=== PATIENT | male | born 1940 | race Caucasian/White ===

== ENCOUNTER 2016-08-10 20:32 | Emergency (ER) | payer MEDICARE, BC ==
[~2016-08-10] VITALS: Ht 175.3 cm; Wt 77.0 kg
[2016-08-10 20:34] VITALS: BP 181/80; PULSE 72; RESP 18; TEMP 98.1; O2SAT 100
[2016-08-11 00:06] VITALS: BP 188/91; PULSE 72; RESP 18; O2SAT 100
[2016-08-11] MEDS ORDERED: LOVA40TA PO (00:11)
[2016-08-11] MEDS ORDERED: ALPR0.25 PO (00:11)
[2016-08-11] MEDS ORDERED: AMLO5TAB2 PO ×2 (00:11)
[2016-08-11] MEDS ORDERED: CARV12.52 PO (00:11)
[2016-08-11] MEDS ORDERED: CITA10TA4 PO (00:11)
[2016-08-11] MEDS ORDERED: TEMA15CA PO (00:11)
[2016-08-11] MEDS ORDERED: SODIUM CHLORIDE 0.9% FLUSH 5 ML FLUSH IVF PRN (00:30)
[2016-08-11 00:47] LABS: AUTOMATED NEUTROPHIL # 3.9 TH/MM3 (1.8-7.7); BASOPHIL # 0.1 TH/MM3 (0-0.2); BASOPHIL % 1.1 % (0.0-2.0); EOSINOPHIL # 0.2 TH/MM3 (0-0.4); EOSINOPHIL % 2.9 % (0.0-4.0); HEMATOCRIT 40.2 % (39.0-51.0); HEMO FLAGS DIFF FINAL; LYMPH % 26.8 % (9.0-44.0); LYMPHOCYTE # 1.8 TH/MM3 (1.0-4.8); MEAN CELL VOLUME 98.6 FL (80.0-100.0); MEAN CORPUSCULAR HEMOGLOBIN 33.7 PG (27.0-34.0); MEAN CORPUSCULAR HGB CONC 34.1 % (32.0-36.0); MONO % 11.5 % (0.0-8.0); NEUT % 57.7 % (16.0-70.0); PLATELET COUNT 239 TH/MM3 (150-450); RED BLOOD COUNT 4.08 MIL/MM3 (4.50-5.90); RED CELL DISTRIBUTION WIDTH 13.5 % (11.6-17.2); WHITE BLOOD COUNT 6.8 TH/MM3 (4.0-11.0)
[2016-08-11 01:12] LABS: ALT (GPT) 16 U/L (12-78); ANION GAP 8 MEQ/L (5-15); AST (GOT) 14 U/L (15-37); BLOOD UREA NITROGEN 26 MG/DL (7-18); CHLORIDE 106 MEQ/L (98-107); GLOMERULAR FILTRATION RATE 28 ML/MIN (>89); SODIUM (NA) 138 MEQ/L (136-145)
[2016-08-11 01:13] LABS: ALKALINE PHOSPHATASE 54 U/L (45-117); TOTAL BILIRUBIN ADULT 0.5 MG/DL (0.2-1.0)
--- NOTE | 2016-08-11 01:28 | PD ---
HPI Chief Complaint: Numbness/Tingling Time Seen by Provider: 00:09 Travel History International Travel<30 days: No Contact w/Intl Traveler<30days: No Traveled to known affect area: No History of Present Illness HPI 75-year-old male came to the emergency room with history of generalized weakness , anxiety and depression, poor appetite and weight loss going on for past 3-4 months. His family members are with him and they mentioned that he has lost about 30-50 pounds over past 5 months. Patient has history of anxiety and depression and is on medications for those. However symptoms have not greatly improved. He occasionally gets abdominal pain especially after he eats. He pointed towards his periumbilical area about the pain. However currently he is pain-free. Vital signs are stable. Upon asking he said he came here tonight since he's been having some numbness of his toes in both feet. However he does not have any problems walking. Rest of the strength of all 4 extremities is within normal limit. Speech is within normal limits. FOR[facility]LY [facility] Past Medical History Narrative Medical List of his past medical history as reviewed from the nursing note. Anxiety: Yes Depression: Yes Cardiovascular Problems: Yes (STENT 1997) Hypertension: Yes Medical other: Yes (KIDNEY DISEASE) Immunizations Current: Yes Tetanus Vaccination: > 5 Years Influenza Vaccination: No Past Surgical History Coronary Stent: Yes (1997) Social History Alcohol Use: No Tobacco Use: No Substance Use: No Allergies-Medications (Allergen,Severity, Reaction): Coded Allergies: No Known Allergies (Unverified , 08/10/16) Comments No known drug allergies. Reported Meds & Prescriptions Reported Meds & Active Scripts Active Reported Alprazolam 0.25 Mg Tab 0.25 Mg PO Q8H PRN Citalopram (Citalopram Hydrobromide) 10 Mg Tab 10 Mg PO TID Temazepam 15 Mg Cap 15 Mg PO HS PRN Lovastatin 40 Mg Tab 40 Mg PO DAILY Carvedilol 12.5 Mg Tab 12.5 Mg PO BID Amlodipine (Amlodipine Besylate) 5 Mg Tab 5 Mg PO BID Narrative Medication List of his home medications reviewed from the nursing note. Review of Systems Except as stated in HPI: all other systems reviewed are Neg Physical Exam Narrative GENERAL: Awake, alert, no obvious distress SKIN: Warm and dry. HEAD: Atraumatic. Normocephalic. EYES: Pupils equal and round. No scleral icterus. No injection or drainage. ENT: No nasal bleeding or discharge. Mucous membranes pink and moist. NECK: Trachea midline. No JVD. CARDIOVASCULAR: Regular rate and rhythm. No murmur appreciated. RESPIRATORY: No accessory muscle use. Clear to auscultation. Breath sounds equal bilaterally. GASTROINTESTINAL: Abdomen soft, non-tender, nondistended. Hepatic and splenic margins not palpable. MUSCULOSKELETAL: No obvious deformities. No clubbing. No cyanosis. No edema. NEUROLOGICAL: Awake and alert. No obvious cranial nerve deficits. Motor grossly within normal limits. Normal speech. PSYCHIATRIC: Appropriate mood and affect; insight and judgment normal. Data Data Last Documented VS Vital Signs Date Time Temp Pulse Resp B/P Pulse Ox O2 Delivery O2 Flow Rate FiO2 08/11/16 03:17 78 18 148/67 99 Room Air 08/10/16 20:34 98.1 Orders Electrocardiogram (08/10/16 20:40) Complete Blood Count With Diff (08/11/16 00:25) Comprehensive Metabolic Panel (08/11/16 00:25) Lipase (08/11/16 00:25) Urinalysis - C+S If Indicated (08/11/16 00:25) Iv Access Insert/Monitor (08/11/16 00:25) Ecg Monitoring (08/11/16 00:25) Oximetry (08/11/16 00:25) Sodium Chloride 0.9% Flush (Ns Flush) (08/11/16 00:30) Sodium Chlor 0.9% 1000 Ml Inj (Ns 1000 M (08/11/16 01:45) Labs Laboratory Tests Test 08/11/16 00:30 White Blood Count 6.8 TH/MM3 Red Blood Count 4.08 MIL/MM3 Hemoglobin 13.7 GM/DL Hematocrit 40.2 % Mean Corpuscular Volume 98.6 FL Mean Corpuscular Hemoglobin 33.7 PG Mean Corpuscular Hemoglobin 34.1 % Concent Red Cell Distribution Width 13.5 % Platelet Count 239 TH/MM3 Mean Platelet Volume 8.2 FL Neutrophils (%) (Auto) 57.7 % Lymphocytes (%) (Auto) 26.8 % Monocytes (%) (Auto) 11.5 % Eosinophils (%) (Auto) 2.9 % Basophils (%) (Auto) 1.1 % Neutrophils # (Auto) 3.9 TH/MM3 Lymphocytes # (Auto) 1.8 TH/MM3 Monocytes # (Auto) 0.8 TH/MM3 Eosinophils # (Auto) 0.2 TH/MM3 Basophils # (Auto) 0.1 TH/MM3 CBC Comment DIFF FINAL Differential Comment Urine Color LIGHT-YELLOW Urine Turbidity CLEAR Urine pH 5.5 Urine Specific [place] 1.007 Urine Protein TRACE mg/dL Urine Glucose (UA) NEG mg/dL Urine Ketones NEG mg/dL Urine Occult Blood NEG Urine Nitrite NEG Urine Bilirubin NEG Urine Urobilinogen LESS THAN 2.0 MG/DL Urine Leukocyte Esterase NEG Urine WBC LESS THAN 1 /hpf Microscopic Urinalysis Comment CULT NOT INDICATED Sodium Level 138 MEQ/L Potassium Level 4.0 MEQ/L Chloride Level 106 MEQ/L Carbon Dioxide Level 24.0 MEQ/L Anion Gap 8 MEQ/L Blood Urea Nitrogen 26 MG/DL Creatinine 2.28 MG/DL Estimat Glomerular Filtration 28 ML/MIN Rate Random Glucose 126 MG/DL Calcium Level 9.0 MG/DL Total Bilirubin 0.5 MG/DL Aspartate Amino Transf 14 U/L (AST/SGOT) Alanine Aminotransferase 16 U/L (ALT/SGPT) Alkaline Phosphatase 54 U/L Total Protein 7.4 GM/DL Albumin 3.5 GM/DL Lipase 256 U/L MDM Medical Decision Making Medical Screen Exam Complete: Yes Emergency Medical Condition: Yes Medical Record Reviewed: Yes Differential Diagnosis Paresthesia, electrolyte abnormalities Narrative Course 2:25 AM the test results are back and patient has renal failure. However I do not have old labs to compare with in the system. Electrolytes especially potassium is within normal limit otherwise. Waiting for the urine analysis. 3:08 AM urinalysis result was back and was within normal limit. I went and discussed the test results with the patient. At this point he let knee know that he has history of renal insufficiency and follows with a latexer, Dr. Sal. Last creatinine was 2.28. Given the nonemergent nature of his symptoms and stable test results I am comfortable discharging him home. I have asked him to follow up with his primary care. Procedures EKG Prior to Arrival: No Diagnosis Primary Impression: Renal insufficiency Additional Impressions: Poor appetite Paresthesia Depression Qualified Code: F34.1 - Dysthymia Referrals: Primary Care Physician Additional Instructions: Please return to the ER if the condition worsens or any other emergent new concerns. Otherwise follow-up with your primary care. Med/Other Pt SpecificInfo: No Change to Meds Disposition: 01 DISCHARGE HOME Condition: Stable Avery Romero MD Aug 11, 2016 01:28
[2016-08-11] MEDS ORDERED: SODIUM CHLOR 0.9% 1000 ML INJ 1,000 ML IV ONE (01:45)
[2016-08-11 02:46] LABS: BLOOD, URINE NEG (NEG); GLUCOSE,URINE NEG (NEG); KETONE, URINE NEG (NEG); NITRITE,URINE NEG (NEG); PH, URINE 5.5 (5.0-8.5); URINE COLOR LIGHT-YELLOW (YELLW/STRAW)
[2016-08-11 02:48] LABS: COMMENT (UR) CULT NOT INDICATED; CULTURE IF INDICATED CULT NOT INDICATED
[2016-08-11 03:17] VITALS: BP 148/67; PULSE 78; RESP 18; O2SAT 99
--- NOTE | 2016-08-12 11:50 | EKG ---
Date Performed: 08/10/2016 Time Performed: 20:46:05 PTAGE: 75 years EKG: Sinus rhythm NONSPECIFIC ST & T-WAVE ABNORMALITY BORDERLINE ECG NO PREVIOUS TRACING DOCTOR: Zeeshan Fernández Interpretating Date/Time 08/12/2016 11:47:56
== END 2016-08-11 03:35 | disposition home or self-care (01) ==
LOC: NEPC 20:32
DX: N28.9 Disorder of kidney and ureter, unspecified (principal); R63.0 Anorexia; R20.2 Paresthesia of skin; F34.1 Dysthymic disorder; R94.31 Abnormal electrocardiogram [ECG] [EKG]; R63.4 Abnormal weight loss; I10 Essential (primary) hypertension; Z86.59 Personal history of other mental and behavioral disorders; Z86.79 Personal history of other diseases of the circulatory system
CPT/HCPCS: 80053; 81001; 83690; 85025; 93005; 96360; 99285; J7030